=== PATIENT | male | born 2000 | race Two or more races ===

== ENCOUNTER 2023-04-15 21:21 | Emergency (ER) | payer SELFPAY ==
[~2023-04-15] VITALS: Ht 182.9 cm; Wt 59.0 kg
[2023-04-16] MEDS ORDERED: IBUP-1456 PO (00:04)
[2023-04-16 00:25] VITALS: BP 126/83; PULSE 81; RESP 19; TEMP 98.7; O2SAT 98
== END 2023-04-16 00:25 | disposition home or self-care (01) ==
LOC: ER 21:23
DX: S46.912A Strain of unspecified muscle, fascia and tendon at shoulder and upper arm level, left arm, initial encounter (principal); F12.90 Cannabis use, unspecified, uncomplicated; X58.XXXA Exposure to other specified factors, initial encounter; Y93.89 Activity, other specified; Y92.89 Other specified places as the place of occurrence of the external cause; Y99.8 Other external cause status
CPT/HCPCS: 73030